=== PATIENT | male | born 1950 | race Caucasian/White ===

== ENCOUNTER 2018-05-02 17:17 | Emergency (ER) | payer BC ==
--- NOTE | 2018-05-02 18:10 | EDPHY ---
H & P Time Seen by Provider: 05/02/18 18:10 HPI/ROS: CHIEF COMPLAINT: Can't urinate HISTORY OF PRESENT ILLNESS: Patient in the 2nd week of February said urinary retention UTI was treated with Bactrim. He had recurrent urinary tract infection with retention and finished a 10 day course of Macrobid 2 weeks ago. Since this morning he feels urinary tension, needs to urinate but cannot. He did have a cystoscopy with a surgical procedure to widen the bladder neck area about 20 years ago. Not associated with fever chills pain all testicular symptoms. No abdominal pain or vomiting. REVIEW OF SYSTEMS: Eye: no change in vision ENT: no sore throat Cardiac: no chest pain or syncope Pulmonary: no cough or SOB Abdomen: no vomiting, diarrhea, abdominal pain Musculoskeletal: no back pain Skin: no rash Neuro: no headache Constitutional: no fever : HPI A comprehensive 10 point review of systems is otherwise negative aside from elements mentioned in the history of present illness. PAST MEDICAL HISTORY: Rheumatoid arthritis and previous urologic surgery as above. Social history: Primary care is Dr. Cortez at the [facility] General Appearance: Alert and conversant, cooperative. Eyes: No scleral icterus. ENT, Mouth: Normal mucous membranes. Respiratory: Normal respiratory effort, breath sounds equal, lungs are clear to auscultation. Cardiovascular: Regular rate and rhythm. Gastrointestinal: Suprapubic fullness and tenderness but no rebound or guarding , normal male . Neurological: Alert, face symmetric, normal motor and sensory in extremities. Patellar reflexes 2+ bilaterally, no clonus, toes downgoing, ambulatory per Skin: Warm and dry, no rashes. Musculoskeletal: No peripheral edema. Psychiatric: Not agitated. Emergency Department course/MDM: Bedside ultrasound performed by myself. Indication urinary retention. Suprapubic view shows full bladder, this is a postvoid residual. The abnormal finding. Procedures performed by myself and images archived. 2025: Results discussed, will treat with Keflex, he had a rash with penicillin , is allergic to sulfa and Levaquin. Recently received Macrobid. 1st dose in the ED without reaction. Urology follow-up. Discussed with Pavithra [facility] u[facility] at 2130 will get f/u in office this week. Smoking Status: Never smoked Constitutional: Initial Vital Signs Temperature (C) 36.6 C 05/02/18 17:22 Heart Rate 92 05/02/18 17:22 Respiratory Rate 18 05/02/18 17:22 Blood Pressure 177/95 H 05/02/18 17:22 O2 Sat (%) 94 05/02/18 17:22 O2 Delivery Mode Room Air Allergies/Adverse Reactions: Sulfa (Sulfonamide Antibiotics) Adverse Reaction (Intermediate, Verified 17:21) Rash Penicillins Adverse Reaction (Mild, Verified 05/02/18 17:21) Home Medications: Medication Instructions Recorded Cephalexin [Keflex] 500 mg PO QID #40 cap 05/02/18 Flomax 05/02/18 Medical Decision Making - Data Points Laboratory Results: 05/02/18 05/02/18 19:35 18:41 POC Hgb 15.6 gm/dL gm/dL (13.7-17.5) POC Hct 46 % % (40-51) POC Sodium 143 mEq/L mEq/L (135-145) POC Potassium 3.7 mEq/L mEq/L (3.3-5.0) POC Chloride 110 mEq/L mEq/L (97-110) POC BUN 22 mg/dL mg/dL (7-23) POC Creatinine 1.1 mg/dL mg/dL (0.7-1.3) POC Glucose 95 mg/dL mg/dL (70-100) Urine Color YELLOW Urine Appearance MODERATELY TURBID Urine pH 5.0 (5.0-7.5) Ur Specific [place] 1.012 (1.002-1.030) Urine Protein 1+ H (NEGATIVE) Urine Ketones 1+ H (NEGATIVE) Urine Blood 3+ H (NEGATIVE) Urine Nitrate NEGATIVE (NEGATIVE) Urine Bilirubin NEGATIVE (NEGATIVE) Urine Urobilinogen NEGATIVE EU EU (0.2-1.0) Ur Leukocyte Esterase 3+ H (NEGATIVE) Urine RBC 50-182 /hpf H /hpf (0-3) Urine WBC 50-182 /hpf H /hpf (0-3) Ur Epithelial Cells NONE SEEN /lpf /lpf (NONE-1+) Amorphous Sediment PRESENT /hpf /hpf (NONE-1+) Urine Bacteria 4+ /hpf H /hpf (NONE SEEN) Urine Glucose NEGATIVE (NEGATIVE) Medications Given: Discontinued Medications Cephalexin (Keflex 500 Mg Prepack#4) 1 btl TAKEHOME EDNOW ONE PRN Reason: Protocol Stop: 05/02/18 20:33 Last Admin: 05/02/18 20:59 Dose: 1 btl Cephalexin HCl (Keflex) 500 mg PO EDNOW ONE PRN Reason: Protocol Stop: 05/02/18 20:33 Last Admin: 05/02/18 20:59 Dose: 500 mg Ibuprofen (Motrin) 600 mg PO EDNOW ONE Stop: 05/02/18 21:01 Last Admin: 05/02/18 21:01 Dose: 600 mg Point of Care Test Results: Chemistry 05/02/18 18:41 POC Sodium 143 mEq/L mEq/L (135-145) POC Potassium 3.7 mEq/L mEq/L (3.3-5.0) POC Chloride 110 mEq/L mEq/L (97-110) POC BUN 22 mg/dL mg/dL (7-23) POC Creatinine 1.1 mg/dL mg/dL (0.7-1.3) POC Glucose 95 mg/dL mg/dL (70-100) ISTAT H&H 05/02/18 18:41 POC Hgb 15.6 gm/dL gm/dL (13.7-17.5) POC Hct 46 % % (40-51) Departure - Departure Disposition: Home, Routine, Self-Care Clinical Impression: Acute retention of urine Urinary tract infection Qualifiers: Urinary tract infection type: acute cystitis Hematuria presence: with hematuria Qualified Code(s): N30.01 - Acute cystitis with hematuria Condition: Good Instructions: Cephalexin (By mouth), Urinary Retention in Men (ED), Urinary Tract Infection in Men (ED), Velazquez Catheter Placement and Care (ED) Referrals: EFRAIN MELARA [Other] - As per Instructions Sai Espinosa MD [Medical Doctor] - As per Instructions Prescriptions: Cephalexin [Keflex] 500 mg PO QID #40 cap
[2018-05-02] MEDS ORDERED: CEPHALEXIN 500 MG CAP PO ONE (20:32)
[2018-05-02] MEDS ORDERED: CEPHALEXIN 500MG PREPACK#4 BTL TAKEHOME ONE (20:32)
[2018-05-02] MEDS ORDERED: IBUPROFEN 600 MG TAB PO ONE ×2 (20:58→21:00)
[2018-05-02 21:05] VITALS: BP 165/77
== END 2018-05-02 21:05 | disposition home or self-care (01) ==
PROC: 0T9B70Z Drainage of Bladder with Drainage Device, Via Natural or Artificial Opening (ICD-10-PCS; principal; 2018-05-02)
DX: N30.01 Acute cystitis with hematuria (principal)
CPT/HCPCS: 82435-PO; 82565-PO; 82947-PO; 84132-PO; 84295-PO; 84520-PO; 85014-PO

== ENCOUNTER → 2018-10-17 | Outpatient (CLI) | payer BC | LOC: FIMAGING 08:29 | PROVIDERS: ATTEND Physician Assistant | DX: K76.89 Other specified diseases of liver (principal) ==